=== PATIENT | female | born 1960 | race American Indian/Alaskan Native ===

== ENCOUNTER 2017-03-22 12:08 | Emergency (ER) | payer MEDICAID, OTHER ==
[2017-03-22 12:22] VITALS: BP 110/67
[2017-03-22 13:22] LABS: CHLORIDE,CL 101 mmol/L (101-111); SODIUM,NA 137 mmol/L (135-145)
--- NOTE | 2017-03-22 13:43 | EDM.PDOC ---
Scribed by Cat Leon 03/22/17 1340 for Roger Rocha MD ED HPI GENERAL MEDICAL PROBLEM - General Chief Complaint: Upper Extremity Injury/Pain Stated Complaint: [id number] HAND PAIN Time Seen by Provider: 03/22/17 12:35 Source of Information: Reports: Patient, RN, RN Notes Reviewed History Limitations: Reports: No Limitations - History of Present Illness INITIAL COMMENTS - FREE TEXT/NARRATIVE: Patient presents with left thumb and wrist pain with swelling for several weeks. She was seen in clinic last week and given a splint with the diagnosis of tendonitis. She denies any injury. Admits to repetitive wrist and thumb movement due to keyboard use. She has not had any improvement with the splint so far. Quality: Reports: Ache Severity: Severe Improves with: Reports: None Worsens with: Reports: None Associated Symptoms: Reports: No Other Symptoms Treatments [employer] WORK: Reports: Cold Therapy Left Wrist Pain Score (Numeric/FACES): 8 - Related Data Allergies Allergy/AdvReac Type Severity Reaction Status Date / Time amoxicillin [From Augmentin] Allergy Nausea and Verified 03/22/17 12:26 Vomiting clavulanic acid Allergy Nausea and Verified 03/22/17 12:26 [From Augmentin] Vomiting Sulfa (Sulfonamide Allergy Numbness Verified 03/22/17 12:25 Antibiotics) Home Meds: Home Meds Albuterol Sulfate 2.5 mg IH Q4HR 03/22/17 [History] Calcium Carbonate/Vitamin D3 [Calcium 500 + Vit D Caplet] 1,000 mg PO BID [History] Insulin Detemir [Levemir Flextouch] 11 unit SQ BID 03/22/17 [History] Lisinopril [Lisinopril] 5 mg PO DAILY 03/22/17 [History] Metoprolol Tartrate [Metoprolol Tartrate] 25 mg PO BID 03/22/17 [History] Mometasone/Formoterol [Dulera 200 MCG/5 MCG] 1 puff INH DAILY 03/22/17 [History] Simvastatin [Zocor] 20 mg PO BEDTIME 03/22/17 [History] metFORMIN [Glucophage] 500 mg PO BID 03/22/17 [History] Past Medical History HEENT History: Reports: None Cardiovascular History: Reports: High Cholesterol, Hypertension, Other (See Below) Other Cardiovascular History: heart flutters Respiratory History: Reports: Asthma, COPD, Other (See Below) Other Respiratory History: Emphysema, chronic bronchitis Gastrointestinal History: Reports: None Genitourinary History: Reports: None HARNESSMAKER History: Reports: None Musculoskeletal History: Reports: Other (See Below) Other Musculoskeletal History: wrist tendonitis Neurological History: Reports: None Psychiatric History: Reports: None Endocrine/Metabolic History: Reports: Diabetes, Type I (insulin dependent), Diabetes, Type II, Obesity/BMI 30+ Hematologic History: Reports: Anemia Immunologic History: Reports: None Oncologic (Cancer) History: Reports: None Dermatologic History: Reports: None - Infectious Disease History Infectious Disease History: Reports: None - Past Surgical History Head Surgeries/Procedures: Reports: None Social & Family History - Family History Family Medical History: Noncontributory - Tobacco Use Smoking Status *Q: Current Every Day Smoker Years of Tobacco use: 25 Packs/Tins Daily: 0.5 - Caffeine Use Caffeine Use: Reports: Coffee - Recreational Drug Use Recreational Drug Use: No Review of Systems - Review of Systems Review Of Systems: ROS reveals no pertinent complaints other than HPI. ED EXAM, GENERAL - Physical Exam Exam: See Below Exam Limited By: No Limitations General Appearance: Alert, WD/WN, No Apparent Distress, Obese Respiratory/Chest: No Respiratory Distress Cardiovascular: Normal Peripheral Pulses (to bilateral upper extremities.) Back Exam: Normal Inspection, Full Range of Motion, NT Extremities: Other (Aute pain with palpationat base of thumb and radial-carpal wrist joint with mild swelling. No erythema, no increased warmth, or bruising. Skin is intact. ) Neurological: Alert, Oriented, CN II-XII Intact, Normal Cognition, Normal Gait, Normal Reflexes, No Motor/Sensory Deficits Psychiatric: Normal Affect, Normal Mood Skin Exam: Warm, Dry, Intact, Normal Color, No Rash Course - Vital Signs Last Recorded V/S: Last Vital Signs Temp 36.0 C 03/22/17 12:20 Pulse 97 03/22/17 12:20 Resp 20 03/22/17 12:20 BP 110/67 03/22/17 12:20 Pulse Ox 95 03/22/17 12:20 - Orders/Labs/Meds Labs: Laboratory Tests 03/22/17 03/22/17 03/22/17 Range/Units 12:55 12:55 12:55 WBC 7.0 (5.0-10.0) 10^3/uL RBC 4.55 (4.2-5.4) 10^6/uL Hgb 14.2 (12.0-16.0) g/dL Hct 41.7 (37.0-47.0) % MCV 91.6 (80-100) fL MCH 31.2 (27.0-34.0) pg MCHC 34.1 (33.0-35.0) g/dL Plt Count 151 (150-450) 10^3/uL Neut % (Auto) 54.3 (42.2-75.2) % Lymph % (Auto) 33.1 (20.5-50.1) % Ward % (Auto) 4.3 (2-8) % Eos % (Auto) 8.0 H (1.0-3.0) % Baso % (Auto) 0.3 (0.0-1.0) % Sodium 137 (135-145) mmol/L Potassium 4.3 (3.6-5.0) mmol/L Chloride 101 (101-111) mmol/L Carbon Dioxide 25.0 (21.0-31.0) mmol/L Anion Gap 15.3 BUN 8 (7-18) mg/dL Creatinine 0.5 L (0.6-1.3) mg/dL Est Cr Clr Drug Dosing 103.93 mL/min Estimated GFR (MDRD) > 60 Glucose 315 H (74-105) mg/dL Calcium 9.3 (8.4-10.2) mg/dl C-Reactive Protein 0.8 (0.0-1.3) mg/dL - Radiology Interpretation Free Text/Narrative:: X-ray of left wrist: Per rad report normal. - Re-Assessments/Exams Free Text/Narrative Re-Assessment/Exam: 03/22/17 13:36 Nurse applied spica thumb splint. Departure - Departure Time of Disposition: 13:32 Disposition: Home, Self-Care 01 Condition: Good Clinical Impression: De Quervain's tenosynovitis, left - Discharge Information Instructions: De Quervain Tenosynovitis Forms: ED Department Discharge Additional Instructions: RX: Diclofenac DS 75mg. Follow up in clinic for recheck and ask your doctor about any longer term thumb spica splint for the left hand. Rest and apply ice pack to the area of pain. I have read and agree with the documentation that has been completed regarding this visit. By signing this record, I attest that the documentation was completed in my physical presence and is an accurate record of the encounter.
== END 2017-03-22 13:45 | disposition home or self-care (01) ==
LOC: DL.ED 12:08
DX: M65.4 Radial styloid tenosynovitis [de Quervain] (principal); E78.00 Pure hypercholesterolemia, unspecified; I10 Essential (primary) hypertension; J44.9 Chronic obstructive pulmonary disease, unspecified; J45.909 Unspecified asthma, uncomplicated; E10.9 Type 1 diabetes mellitus without complications; F17.210 Nicotine dependence, cigarettes, uncomplicated; Z88.1 Allergy status to other antibiotic agents; Z88.2 Allergy status to sulfonamides; Z79.899 Other long term (current) drug therapy
CPT/HCPCS: 36415; 73110; 80048; 85025; 86140; 99284; L3923